=== PATIENT | female | born 1965 | race Caucasian/White ===

== ENCOUNTER 2018-08-01 11:26 | Observation (INO) | payer OTHER ==
[~2018-08-01] VITALS: Ht 152.4 cm; Wt 49.3 kg
[2018-08-01] VITALS (24 sets, daily range): BP systolic 109–144; BP diastolic 72–86; PULSE 64–88; RESP 12–29; Ht 152.4 cm; Wt 49.3 kg
[2018-08-01] MEDS ORDERED: OMEP20CA16 PO (12:04)
[2018-08-01] MEDS ORDERED: AMLO-218 PO (12:05)
[2018-08-01] MEDS ORDERED: CARV12.579 PO (12:11)
[2018-08-01] MEDS ORDERED: VALS160T20 PO (12:12)
[2018-08-01] MEDS ORDERED: CEFAZOLIN 1 GM/50 ML (PMX) 50 ML IVPB ONE (14:00)
[2018-08-01] MEDS ORDERED: BUPIVACAINE 0.5% (SDV) 30 ML INJ ONE (14:51)
[2018-08-01] MEDS ORDERED: LIDOCAINE 1% (MDV) 20 ML INJ ONE (14:51)
[2018-08-01] MEDS ORDERED: SOD CHLORIDE 0.9% 500 ML ONE (14:51)
[2018-08-01] MEDS ORDERED: CEFAZOLIN 1 GM/50 ML (PMX) 100 ML IVPB ONE (14:52)
[2018-08-01] MEDS ORDERED: POLYMYXIN/BACITRACIN 1L IRRIG IRR SCH (15:00)
--- NOTE | 2018-08-01 15:05 | PREAC ---
Date/Time of Note Date/Time of Note DATE: 08/01/18 TIME: 15:01 Anesthesia Eval and Record Evaluation Time Pre-Procedure Interview DATE: 08/01/18 TIME: 15:01 Age 53 Sex female NPO: 8 hrs Preoperative diagnosis nonischemic cardiomyopathy Planned procedure ACID placement Past Medical History Past Medical History: Includes Cardio: HTN, CHF (EF 10%), Other (pulmonary hypertension) GI: GERD Surgery & Anesthesia Issues No known issue Meds Anticoagulation: No Beta Nano within 24 hr: Yes Reason Beta Nano not given: Bradycarida, Hypotension Reported Medications Valsartan* (Diovan*) 160 Mg Tablet, 160 MG PO DAILY, TAB 08/01/18 Carvedilol* (Carvedilol*) 12.5 Mg Tablet, 12.5 MG PO BID, #60 TAB 08/01/18 Amlodipine Besylate* (Norvasc*) 10 Mg Tablet, 10 MG PO DAILY, TAB 08/01/18 Omeprazole* (Omeprazole*) 20 Mg Capsule.dr, 20 MG PO DAILY, #30 CAP 08/01/18 Current Medications Bacitracin/ Polymyxin B Sulfate (Pb Solution) 1,000 ml NOW IRR ; Start 08/01/18 at 15:00; Stop 08/01/18 at 15:01 Meds reviewed: Yes Allergies Coded Allergies: No Known Allergy (Unverified , 08/01/18) Allergies Reviewed: Yes Labs/Studies Labs Reviewed: Reviewed by anesthesiologist test: N/A (menopause) Studies: ECG (sinus bradycardia HR 59, left atrial enlargement, LVH) Pre-procedure Exam Last vitals Vital Signs Date Temp Pulse Resp B/P (MAP) Pulse Ox O2 O2 Flow FiO2 Time Delivery Rate 08/01/18 98.7 70 16 144/78 100 Room Air 13:31 (100) Airway: Adequate mouth opening, Adequate thyromental dist Mallampati: Mallampati II Teeth: Normal Lung: Normal Heart: Normal ASA Physical Status ASA physical status: 4 Emergency: None Planned Anesthetic General/MAC: MAC Planned Pain Management Parenteral pain med, Local by surgeon Pre-operative Attestations Prior to commencing anesthesia and surgery, the patient was re-evaluated, there was verification of: *The patient's identity *The results of appropriate recent lab work and preoperative vital signs *The above evaluation not changing prior to induction *Anesthetic plan, risk benefits, alternative and complications discussed with patient/family; questions answered; patient/family understands, accepts and wishes to proceed. ANDI BEY MD Aug 01, 2018 15:05
[2018-08-01] MEDS ORDERED: FENTAnyl 50 MCG/ML VIAL ONE (15:11)
[2018-08-01] MEDS ORDERED: ETOMIDATE 20 MG INJ ONE (15:11)
[2018-08-01] MEDS ORDERED: MIDAZOLAM 1 MG/ML 2 ML INJ ONE (15:11)
[2018-08-01] MEDS ORDERED: LIDOCAINE 2% (SDV) 5 ML INJ ONE (15:12)
[2018-08-01] MEDS ORDERED: ONDANSETRON 4 MG INJ IV PRN (15:30)
[2018-08-01] MEDS ORDERED: HYDROmorphONE 1 MG/5 ML IV SYRINGE IV PRN (15:30)
[2018-08-01] MEDS ORDERED: LIDOCAINE 1%/EPI 30 ML INJ ONE (16:00)
--- NOTE | 2018-08-01 16:46 | PAC ---
Date/Time of Note Date/Time of Note DATE: 08/01/18 TIME: 16:46 Post-Anesthesia Notes Post-Anesthesia Note Last documented vital signs Vital Signs Date Temp Pulse Resp B/P (MAP) Pulse Ox O2 O2 Flow FiO2 Time Delivery Rate 08/01/18 98.7 70 16 144/78 100 Room Air 13:31 (100) Activity: WNL Respiratory function: WNL Cardiovascular function: WNL Mental status: Baseline Pain reasonably controlled: Yes Hydration appropriate: Yes Nausea/Vomiting absent: Yes Comments BP: 130/85 HR: 82 RR: 15 T: 98 SaO2: 97% ANDI BEY MD Aug 01, 2018 16:46
--- NOTE | 2018-08-01 16:59 | SIPON ---
Date/Time of Note Date/Time of Note DATE: 08/01/18 TIME: 16:56 Operative Report Preoperative Diagnosis NIDCMP Postoperative Diagnosis same Operation/Procedure Performed ICD implant Surgeon see signature line virtual assistant for advertisers none Anesthesia: MAC, moderate sedation Estimated blood loss: 0 - 10 ml's Transfusion Required none Specimen . Grafts/Implants none Complications none SIXTO JENSEN MD Aug 01, 2018 16:59
--- NOTE | 2018-08-01 17:35 | OPR ---
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 The patient presents for implantable cardiac defibrillator implantation. The patient has been on optimal medical therapy and has failed to increase ejection fraction. PROCEDURES: 1. Implantation of a dual chamber implantable cardiac defibrillator. 2. Implantation of right atrial lead. 3. Implantation of right ventricular lead. 4. Right atrial pacing recording. 5. Right ventricular pacing recording. 6. Contrast sonography of left subclavian vessel. 7. Contrast sonography of the superior vena cava. 8. O2 sat monitoring. 9. Defibrillator pad placements anteriorly and posteriorly. 10. Fluoroscopy and fluoroscopic use in order to guide needle placement to the vessel. DESCRIPTION OF PROCEDURE: After informed consent was obtained by the patient, the patient was ayde t to the cardiac operating room where the patient's left chest and neck region was prepped and draped in usual sterile fashion. Following this, 1% lidocaine was used in order to infiltrate the left del topectoral groove. Following this, 1 inch incision was made. The patient received contrast sonography and subclavian stick was performed. No complications occurr ed. Following this, the patient then had placement of leads into the right atrium and right ventricl e. Following this, the patient had the device brought to the field. Device and leads were connected to each other and placed in the pocket. The leads were secured onto the muscle and the fascia. The n following this, the patient left the cardiac operating room in stable condition. No complications occurred. IMPLANTED MATERIAL: [employer] dual chamber implantable cardiac defibrillator. The patient's pacing and sensing was within normal limits. Please see the implant sheet. IMPRESSION: Successful implantation of a dual-chamber implantable cardiac defibrillator with no comp lications. Dictated By: SIXTO JENSEN MD, LP/JAILENE Conf#: [id number] DID#: [id number]
--- NOTE | 2018-08-01 19:52 | RADRPT ---
Vent Rate: 59 bpm RR Interval: 0 msec IA Interval: 128 msec QRS Duration: 98 msec QT Interval: 424 msec QTC Interval: 419 msec P-R-T [place]: 37 - 12 - -56 degrees Sinus bradycardia Possible Left atrial enlargement Left ventricular hypertrophy with repolarization abnormality Abnormal ECG Electronically Signed By: Truong Weller [id number]
[2018-08-01] MEDS: HYDROCODONE/APAP (5/325) TAB PO PRN (20:32)
[2018-08-01] MEDS: CEFAZOLIN 1 GM/50 ML (PMX) 50 ML IVPB SCH (21:18)
[2018-08-02] VITALS: PULSE 84
[2018-08-02] MEDS: HYDROCODONE/APAP (5/325) TAB PO PRN ×2 (03:10→08:43)
[2018-08-02 04:00] VITALS: BP 102/61; PULSE 67; PULSE 68; RESP 18
[2018-08-02] MEDS: CEFAZOLIN 1 GM/50 ML (PMX) 50 ML IVPB SCH (05:04)
[2018-08-02 07:42] VITALS: BP 108/68; PULSE 74; RESP 18
[2018-08-02 08:00] VITALS: PULSE 79
--- NOTE | 2018-08-02 09:56 | QN ---
Documentation Comment SEEN AND EXAMINED VERONIKA QUINTANA MD Aug 02, 2018 09:56
--- NOTE | 2018-08-02 09:58 | QN ---
Documentation Comment SEEN and excamined VERONIKA QUINTANA MD Aug 02, 2018 09:58
[2018-08-02] MEDS ORDERED: CEPH250S33 PO (09:59)
--- NOTE | 2018-08-02 09:59 | PDOCDIS ---
Discharge Instructions DIAGNOSIS Discharge Diagnosis s/p AICD CONDITION [id number] Patient Condition: [id number] Fair HOME CARE INSTRUCTIONS: [id number] Diet Instructions: [id number] Low Fat /Cholesterol ACTIVITY: [id number] Activity Restrictions: [id number] Avoid heavy lifting Do not operate Machinery Do not operate Power Tool Avoid Heavy Housework [id number] Activity Restrictions Comment: [id number] AICD PRECAUTIONS FOLLOW UP/APPOINTMENTS Follow-up Plan F/U Dr shelby in 1 week VERONIKA QUINTANA MD Aug 02, 2018 09:59
--- NOTE | 2018-08-02 10:58 | HP ---
DATE OF ADMISSION: 08/01/2018 REASON FOR ADMISSION: Status post AICD placement by Dr. Claire. HISTORY OF PRESENT ILLNESS: This is a 53-year-old female with a past medical history of hypertension , pulmonary hypertension with nonischemic cardiomyopathy status post angiogram who had an EF of 10%. The patient had been followed by Dr. Sixto Claire and had AICD that was placed on 08/01/2018. Pos top, patient did not have complications. The patient pacing and sensing was within normal limits. C urrently, patient has some pain at the incision site. Denies any chest pain, any shortness of breath , any abdominal pain, nausea, vomiting or diarrhea. PAST MEDICAL HISTORY: 1. Hypertension. 2. Pulmonary hypertension. 3. Nonischemic cardiomyopathy. ALLERGIES: None. PAST SURGICAL HISTORY: None. MEDICATIONS: Taking at home: 1. Norvasc 10. 2. Coreg 12.5 b.i.d. 3. Valsartan 160. 4. Prilosec 20. SOCIAL HISTORY: Denies any history of smoking, alcohol or any drug use and denies any recreational d rug use. [facility] in [facility]. FAMILY HISTORY: Heart disease in the mother. PHYSICAL EXAMINATION: VITAL SIGNS: Currently, blood pressure 108/68, afebrile, heart rate, saturating 98%. GENERAL: The patient is awake, alert, oriented, does not appear to be any acute distress. HEENT: Pupils equal, round and reactive to light. NECK: Supple, no JVD. HEART: Regular rate and rhythm. LUNGS: Clear to auscultation bilaterally. ABDOMEN: Soft, nontender, nondistended. EXTREMITIES: No clubbing, cyanosis, or edema. The patient has an AICD with a bandage On the left up per chest wall. DIAGNOSTIC DATA which was done on 07/27/2018 was a BMP within normal limit, BUN of 16, creatinine 0.5 4. ASSESSMENT AND PLAN: 1. This is a 53-year-old female admitted for nonischemic dilated cardiomyopathy with an ejection fra ction of 20%, sat 10%, status post AICD placement. 2. Pulmonary hypertension. 3. Hypertension. PLAN: At this period of time, the patient is admitted to telemetry. AICD has been placed. We will monitor the patient overnight. Patient has pain control. The rest of the treatment will depend on zandra goyal's hospitalization course. Dictated By: VERONIKA TERRY/JAILENE Conf#: [id number] DID#: [id number] CC: SIXTO CLAIRE MD;*[facility]*
== END 2018-08-02 11:35 | disposition home or self-care (01) ==
LOC: SDS 11:26 → 6WM 18:50
PROVIDERS: ADMIT Internal Medicine; ATTEND Internal Medicine
DX: I42.0 Dilated cardiomyopathy (principal); I10 Essential (primary) hypertension; I27.20 Pulmonary hypertension, unspecified
CPT/HCPCS: 33249; 93005; C1721; C1777; C1898; J0690; J1170; J2250; J2405; J3010; J7040; Z7500; Z7610; G0378